=== PATIENT | female | born 2000 | race Two or more races ===

== ENCOUNTER 2023-06-30 09:45 | Emergency (ER) | payer OTHER ==
[~2023-06-30] VITALS: Ht 157.5 cm; Wt 58.1 kg
[2023-06-30] MEDS ORDERED: [UNRECOGNIZED DRUG - OTHER] (09:56)
== END 2023-06-30 12:51 | disposition home or self-care (01) ==
LOC: ER 09:45
DX: U07.1 COVID-19 (principal); B34.9 Viral infection, unspecified; R53.81 Other malaise